=== PATIENT | female | born 1995 | race American Indian/Alaskan Native ===

== ENCOUNTER 2016-04-30 23:56 | Outpatient (CLI) | payer MEDICAID ==
[2016-05-01 00:20] VITALS: BP 118/69
[2016-05-01 01:09] LABS: Bilirubin,Urine NEG (Negative); Blood,Urine NEG (Negative); Ketones,Urine TR mg/dL (Negative); Leukocyte Esterase,Urine TR (Negative); Mucus,Urine FEW /HPF; Nitrite,Urine NEG (Negative); Urobilinogen,Urine < 2.0 mg/dL (<2.0)
== END 2016-05-01 02:34 | disposition home or self-care (01) ==
LOC: TRG 23:56
PROVIDERS: ATTEND Obstetrics & Gynecology
DX: O46.93 Antepartum hemorrhage, unspecified, third trimester (principal); O42.913 Preterm premature rupture of membranes, unspecified as to length of time between rupture and onset of labor, third trimester; O77.9 Labor and delivery complicated by fetal stress, unspecified; Z3A.32 32 weeks gestation of pregnancy
CPT/HCPCS: 59025; 81001